=== PATIENT | male | born 1945 | race Caucasian/White ===

== ENCOUNTER 2023-05-19 08:30 | Inpatient (IN) | payer MEDICARE, BC ==
[~2023-05-19] VITALS: Ht 198.1 cm; Wt 78.5 kg
[~2023-05-19 08:30] MED LIST: LORAZEPAM0.5 MG PO; MECLIZINE HCL12.5 MG PO; SIMVASTATIN20 MG PO
[2023-05-19] MEDS: SODIUM CHLORIDE 0.9% 1000ML 1,000 ML IV ONE (09:05)
[2023-05-19 09:06] LABS: BASOPHILS # (AUTO) 0.1 (0.0-0.1); BASOPHILS % 0.3 % (0.0-1.0); EOSINOPHILS % 0.1 % (0.0-6.0); HEMATOCRIT 48.8 % (38.2-49.6); HEMOGLOBIN 16.3 g/dL (14.0-18.0); LYMPHOCYTES # (AUTO) 0.6 (1.0-3.2); LYMPHOCYTES % 4.2 % (18.0-39.1); MEAN CORPUSCULAR HEMOGLOBIN 30.8 pg (28-32); MEAN CORPUSCULAR HGB CONC 33.4 g/dL (31-35); MEAN CORPUSCULAR VOLUME 92.1 fL (81-99); MONOCYTES % 6.6 % (4.4-11.3); NEUTROPHILS # (AUTO) 13.1 (2.1-6.9); NEUTROPHILS % 88.1 % (38.7-80.0); PLATELET COUNT 307 x10e3/uL (140-360); RED CELL DISTRIBUTION WIDTH 15.3 % (11.7-14.4); WHITE BLOOD COUNT 14.87 x10e3/uL (4.8-10.8)
[2023-05-19 09:51] LABS: INR 1.12; PROTHROMBIN TIME 14.6 seconds (11.9-14.5)
[2023-05-19 09:52] LABS: PARTIAL THROMBOPLASTIN TIME 37.9 seconds (23.8-35.5)
[2023-05-19 10:01] LABS: ALBUMIN 3.2 g/dL (3.5-5.0); ALBUMIN/GLOBULIN RATIO 0.8 (0.8-2.0); ANION GAP 21.2 mmol/L (8-16); BILIRUBIN,TOTAL 4.6 mg/dL (0.2-1.2); CALCIUM 11.7 mg/dL (8.4-10.2); CREATININE, SERUM 1.71 mg/dL (0.72-1.25); TOTAL PROTEIN 7.1 g/dL (6.5-8.1)
[2023-05-19 10:05] LABS: POTASSIUM 5.2 mmol/L (3.5-5.1)
[2023-05-19] MEDS: SODIUM CHLORIDE 0.9% 1000ML 1,000 ML IV SCH (12:03)
[2023-05-19 12:48] LABS: CLARITY,URINE CLEAR (CLEAR); COLOR,URINE AMBER (YELLOW); GLUCOSE, URINE NEGATIVE (NEGATIVE); KETONES,URINE NEGATIVE (NEGATIVE); LEUKOCYTE ESTERASE ,URINE NEGATIVE (NEGATIVE); NITRITE,URINE NEGATIVE (NEGATIVE); PH,URINE 5 (5 - 7); PROTEIN,URINE DIPSTICK 2+ (NEGATIVE)
[2023-05-19 12:49] LABS: BILIRUBIN,URINE MODERATE (NEGATIVE); URINE UROBILINOGEN 2 mg/dL (0.2 - 1)
[2023-05-19 13:02] LABS: BACTERIA,URINE MANY /HPF; EPITHELIAL CELLS,URINE RARE /LPF; RBC,URINE 0-5 /HPF (0-5); WBC,URINE (MAN) 0-5 /HPF (0-5)
[2023-05-19] MEDS ORDERED: ONDANSETRON2 MG/1 ML IV (15:34)
[2023-05-19 15:51] VITALS: PULSE 90; RESP 19; TEMP 97.8; O2SAT 97
[2023-05-19 16:00] VITALS: BP 123/55; PULSE 90; RESP 19; TEMP 97.8; O2SAT 97
[2023-05-19 20:00] VITALS: BP 120/63; PULSE 84; RESP 18; TEMP 97.5; O2SAT 94
[2023-05-20] VITALS (8 sets, daily range): BP systolic 110–120; BP diastolic 59–73; PULSE 74–85; RESP 18–20; TEMP 97.1–97.7; O2SAT 95–97
[2023-05-20] MEDS ORDERED: LORAZEPAM 0.5 MG TAB PO PRN (04:00)
[2023-05-20 05:43] LABS: BASOPHILS % 0.3 % (0.0-1.0); EOSINOPHILS % 0.1 % (0.0-6.0); HEMATOCRIT 42.3 % (38.2-49.6); LYMPHOCYTES # (AUTO) 0.9 (1.0-3.2); LYMPHOCYTES % 7.4 % (18.0-39.1); MEAN CORPUSCULAR HEMOGLOBIN 30.3 pg (28-32); MEAN CORPUSCULAR HGB CONC 33.1 g/dL (31-35); MEAN CORPUSCULAR VOLUME 91.6 fL (81-99); MONOCYTES # (AUTO) 0.9 (0.2-0.8); MONOCYTES % 7.7 % (4.4-11.3); NEUTROPHILS # (AUTO) 9.9 (2.1-6.9); NEUTROPHILS % 84.1 % (38.7-80.0); PLATELET COUNT 240 x10e3/uL (140-360); RED BLOOD COUNT 4.62 x10e6/uL (4.3-5.7); RED CELL DISTRIBUTION WIDTH 15.5 % (11.7-14.4); WHITE BLOOD COUNT 11.73 x10e3/uL (4.8-10.8)
[2023-05-20 06:09] LABS: ALBUMIN 2.7 g/dL (3.5-5.0); ALBUMIN/GLOBULIN RATIO 0.9 (0.8-2.0); ANION GAP 17.2 mmol/L (8-16); CALCIUM 10.6 mg/dL (8.4-10.2); CREATININE, SERUM 1.37 mg/dL (0.72-1.25); TOTAL PROTEIN 5.6 g/dL (6.5-8.1)
[2023-05-20 06:10] LABS: POTASSIUM 5.2 mmol/L (3.5-5.1)
[2023-05-20] MEDS ORDERED: FENTANYL CITRATE/PF 100MCG/2 ML INJ ONE (10:44)
[2023-05-20] MEDS ORDERED: MIDAZOLAM HCL 2 MG/2 ML VIAL ONE (10:44)
[2023-05-20] MEDS ORDERED: SODIUM CHLORIDE 0.9% 250ML 250 ML ONE (10:45)
[2023-05-20] MEDS: Morphine 2mg Syringe 2 MG/ML SYR IV PRN (16:18)
[2023-05-21] VITALS: BP 123/63; PULSE 80; RESP 18; TEMP 97.7; O2SAT 96
[2023-05-21 04:00] VITALS: BP 133/65; PULSE 81; RESP 18; TEMP 98; O2SAT 95
[2023-05-21 05:58] LABS: BASOPHILS % 0.2 % (0.0-1.0); EOSINOPHILS % 0.1 % (0.0-6.0); HEMATOCRIT 41.9 % (38.2-49.6); HEMOGLOBIN 14.2 g/dL (14.0-18.0); LYMPHOCYTES # (AUTO) 0.7 (1.0-3.2); LYMPHOCYTES % 6.3 % (18.0-39.1); MEAN CORPUSCULAR HEMOGLOBIN 30.6 pg (28-32); MEAN CORPUSCULAR HGB CONC 33.9 g/dL (31-35); MEAN CORPUSCULAR VOLUME 90.3 fL (81-99); MONOCYTES # (AUTO) 0.8 (0.2-0.8); MONOCYTES % 7.5 % (4.4-11.3); NEUTROPHILS # (AUTO) 9.1 (2.1-6.9); NEUTROPHILS % 85.1 % (38.7-80.0); PLATELET COUNT 225 x10e3/uL (140-360); RED BLOOD COUNT 4.64 x10e6/uL (4.3-5.7); RED CELL DISTRIBUTION WIDTH 15.8 % (11.7-14.4); WHITE BLOOD COUNT 10.65 x10e3/uL (4.8-10.8)
[2023-05-21 06:46] LABS: ALBUMIN 2.6 g/dL (3.5-5.0); ALBUMIN/GLOBULIN RATIO 0.8 (0.8-2.0); BILIRUBIN,TOTAL 4.9 mg/dL (0.2-1.2); CALCIUM 10.2 mg/dL (8.4-10.2); CREATININE, SERUM 1.22 mg/dL (0.72-1.25); TOTAL PROTEIN 5.8 g/dL (6.5-8.1)
[2023-05-21 08:00] VITALS: BP 133/65; PULSE 81; RESP 18; TEMP 98; O2SAT 95
[2023-05-21 08:35] LABS: ALPHA FETO-PROTEIN 3.1 ng/mL (0.0-8.4)
[2023-05-21] MEDS: ONDANSETRON HCL INJ 2MG/ML 2ML 2 MG/ML VIAL IV PRN (11:04)
[2023-05-21 12:00] VITALS: BP 112/48; PULSE 82; RESP 19; TEMP 98.7; O2SAT 95
[2023-05-21 16:00] VITALS: BP 121/59; PULSE 80; RESP 21; TEMP 97.9; O2SAT 96
[2023-05-21 20:00] VITALS: BP 119/57; PULSE 85; RESP 17; TEMP 98.2; O2SAT 96
[2023-05-22] VITALS (7 sets, daily range): BP systolic 109–123; BP diastolic 55–69; PULSE 75–88; RESP 16–21; TEMP 97.3–98; O2SAT 95–99
[2023-05-22 06:55] LABS: BASOPHILS % 0.3 % (0.0-1.0); EOSINOPHILS % 0.2 % (0.0-6.0); HEMATOCRIT 42.4 % (38.2-49.6); HEMOGLOBIN 13.7 g/dL (14.0-18.0); LYMPHOCYTES # (AUTO) 0.6 (1.0-3.2); LYMPHOCYTES % 6.5 % (18.0-39.1); MEAN CORPUSCULAR HEMOGLOBIN 30.3 pg (28-32); MEAN CORPUSCULAR HGB CONC 32.3 g/dL (31-35); MEAN CORPUSCULAR VOLUME 93.8 fL (81-99); MONOCYTES # (AUTO) 0.7 (0.2-0.8); MONOCYTES % 7.5 % (4.4-11.3); NEUTROPHILS # (AUTO) 8.4 (2.1-6.9); NEUTROPHILS % 84.8 % (38.7-80.0); PLATELET COUNT 184 x10e3/uL (140-360); RED BLOOD COUNT 4.52 x10e6/uL (4.3-5.7); RED CELL DISTRIBUTION WIDTH 16.1 % (11.7-14.4); WHITE BLOOD COUNT 9.92 x10e3/uL (4.8-10.8)
[2023-05-22 07:19] LABS: ANION GAP 14.8 mmol/L (8-16); CALCIUM 9.9 mg/dL (8.4-10.2); CREATININE, SERUM 0.99 mg/dL (0.72-1.25); POTASSIUM 4.8 mmol/L (3.5-5.1)
[2023-05-23] VITALS (8 sets, daily range): BP systolic 111–148; BP diastolic 62–73; PULSE 82–91; RESP 16–18; TEMP 97.3–98.1; O2SAT 95–100
[2023-05-23 05:59] LABS: BASOPHILS % 0.3 % (0.0-1.0); EOSINOPHILS % 0.3 % (0.0-6.0); HEMATOCRIT 46.1 % (38.2-49.6); LYMPHOCYTES # (AUTO) 0.9 (1.0-3.2); LYMPHOCYTES % 9.5 % (18.0-39.1); MEAN CORPUSCULAR HEMOGLOBIN 30.1 pg (28-32); MEAN CORPUSCULAR HGB CONC 32.5 g/dL (31-35); MEAN CORPUSCULAR VOLUME 92.6 fL (81-99); MONOCYTES # (AUTO) 0.7 (0.2-0.8); MONOCYTES % 7.2 % (4.4-11.3); NEUTROPHILS # (AUTO) 7.7 (2.1-6.9); NEUTROPHILS % 81.8 % (38.7-80.0); PLATELET COUNT 211 x10e3/uL (140-360); RED BLOOD COUNT 4.98 x10e6/uL (4.3-5.7); RED CELL DISTRIBUTION WIDTH 16.6 % (11.7-14.4); WHITE BLOOD COUNT 9.37 x10e3/uL (4.8-10.8)
[2023-05-23 06:31] LABS: ALBUMIN 2.6 g/dL (3.5-5.0); ALBUMIN/GLOBULIN RATIO 0.8 (0.8-2.0); ANION GAP 16.4 mmol/L (8-16); BILIRUBIN,TOTAL 5.5 mg/dL (0.2-1.2); CALCIUM 10.2 mg/dL (8.4-10.2); CREATININE, SERUM 0.95 mg/dL (0.72-1.25); POTASSIUM 4.4 mmol/L (3.5-5.1); TOTAL PROTEIN 5.8 g/dL (6.5-8.1)
[2023-05-23] MEDS ORDERED: MIDAZOLAM HCL 2 MG/2 ML VIAL ONE (10:26)
[2023-05-23] MEDS ORDERED: FENTANYL CITRATE/PF 100MCG/2 ML INJ ONE (10:26)
[2023-05-23] MEDS ORDERED: SODIUM CHLORIDE 0.9% 250ML 250 ML ONE (10:27)
[2023-05-23] MEDS ORDERED: GLUCAGON FOR INJ 1 MG VIAL ONE (10:33)
[2023-05-23] MEDS ORDERED: DIATRIZOATE MEGL/DIATRIZOA SOD 30 ML BTL PO ONE (10:38)
[2023-05-23] MEDS ORDERED: SODIUM CHLORIDE 0.9% 500ML 500 ML ONE (10:38)
[2023-05-23] MEDS ORDERED: LIDOCAINE HCL 1% LOCAL INJ 20 ML VIAL ONE (10:38)
[2023-05-23] MEDS ORDERED: DIPHENHYDRAMINE HCL 25 MG CAP ONE (12:59)
[2023-05-24] VITALS (7 sets, daily range): BP systolic 111–142; BP diastolic 69–99; PULSE 80–97; RESP 18–20; TEMP 97.4–98.2; O2SAT 96–99
[2023-05-24] MEDS ORDERED: DIATRIZOATE MEGL/DIATRIZOA SOD 30 ML BTL PO ONE (15:02)
[2023-05-25] VITALS (7 sets, daily range): BP systolic 124–142; BP diastolic 68–82; PULSE 68–96; RESP 16–22; TEMP 97.4–98; O2SAT 95–99
[2023-05-25] MEDS: METOCLOPRAMIDE HCL 10 MG/2ML VIAL IV SCH (00:39)
[2023-05-25 05:23] LABS: BASOPHILS % 0.3 % (0.0-1.0); HEMATOCRIT 41.7 % (38.2-49.6); HEMOGLOBIN 13.6 g/dL (14.0-18.0); LYMPHOCYTES # (AUTO) 0.6 (1.0-3.2); LYMPHOCYTES % 5.2 % (18.0-39.1); MEAN CORPUSCULAR HEMOGLOBIN 30.2 pg (28-32); MEAN CORPUSCULAR HGB CONC 32.6 g/dL (31-35); MEAN CORPUSCULAR VOLUME 92.5 fL (81-99); MONOCYTES # (AUTO) 0.8 (0.2-0.8); MONOCYTES % 6.8 % (4.4-11.3); NEUTROPHILS # (AUTO) 10.3 (2.1-6.9); PLATELET COUNT 205 x10e3/uL (140-360); RED BLOOD COUNT 4.51 x10e6/uL (4.3-5.7); RED CELL DISTRIBUTION WIDTH 17.8 % (11.7-14.4); WHITE BLOOD COUNT 11.87 x10e3/uL (4.8-10.8)
[2023-05-25 05:46] LABS: ALBUMIN 2.3 g/dL (3.5-5.0); ALBUMIN/GLOBULIN RATIO 0.8 (0.8-2.0); ANION GAP 15.9 mmol/L (8-16); BILIRUBIN,TOTAL 5.7 mg/dL (0.2-1.2); CALCIUM 9.9 mg/dL (8.4-10.2); CREATININE, SERUM 1.29 mg/dL (0.72-1.25); MAGNESIUM 2.1 MG/DL (1.3-2.1); POTASSIUM 4.9 mmol/L (3.5-5.1); TOTAL PROTEIN 5.1 g/dL (6.5-8.1)
[2023-05-25] MEDS ORDERED: MECLIZINE HCL 12.5 MG TAB PO PRN (14:15)
[2023-05-26] VITALS: BP 141/79; PULSE 96; RESP 18; TEMP 98; O2SAT 96
[2023-05-26 04:00] VITALS: BP 130/73; PULSE 91; RESP 18; TEMP 97.7; O2SAT 94
[2023-05-26 05:35] LABS: BASOPHILS % 0.2 % (0.0-1.0); EOSINOPHILS % 0.1 % (0.0-6.0); HEMATOCRIT 47.2 % (38.2-49.6); HEMOGLOBIN 15.3 g/dL (14.0-18.0); LYMPHOCYTES # (AUTO) 0.8 (1.0-3.2); LYMPHOCYTES % 6.9 % (18.0-39.1); MEAN CORPUSCULAR HEMOGLOBIN 30.4 pg (28-32); MEAN CORPUSCULAR HGB CONC 32.4 g/dL (31-35); MEAN CORPUSCULAR VOLUME 93.7 fL (81-99); MONOCYTES # (AUTO) 0.8 (0.2-0.8); NEUTROPHILS # (AUTO) 10.1 (2.1-6.9); NEUTROPHILS % 84.8 % (38.7-80.0); PLATELET COUNT 218 x10e3/uL (140-360); RED BLOOD COUNT 5.04 x10e6/uL (4.3-5.7); RED CELL DISTRIBUTION WIDTH 18.8 % (11.7-14.4); WHITE BLOOD COUNT 11.95 x10e3/uL (4.8-10.8)
[2023-05-26 06:09] LABS: ALBUMIN 2.4 g/dL (3.5-5.0); ALBUMIN/GLOBULIN RATIO 0.8 (0.8-2.0); ANION GAP 16.9 mmol/L (8-16); BILIRUBIN,TOTAL 7.1 mg/dL (0.2-1.2); CALCIUM 10.4 mg/dL (8.4-10.2); CREATININE, SERUM 1.23 mg/dL (0.72-1.25); POTASSIUM 4.9 mmol/L (3.5-5.1); TOTAL PROTEIN 5.5 g/dL (6.5-8.1)
[2023-05-26 08:16] VITALS: BP 131/88; PULSE 86; RESP 21; TEMP 97.8; O2SAT 96
[2023-05-26 12:20] VITALS: BP 134/72; PULSE 99; RESP 22; TEMP 97.8; O2SAT 96
== END 2023-05-26 13:17 | DRG 843 ==
LOC: ER 08:37 → ERHOLD 11:31 → MED/SURG 15:02
PROVIDERS: ADMIT Internal Medicine; ATTEND Internal Medicine
PROC: 0DH63UZ Insertion of Feeding Device into Stomach, Percutaneous Approach (ICD-10-PCS; principal; 2023-05-19)
PROC: 0FB13ZX Excision of Right Lobe Liver, Percutaneous Approach, Diagnostic (ICD-10-PCS; 2023-05-19)
DX: C7B.8 Other secondary neuroendocrine tumors (principal); E43 Unspecified severe protein-calorie malnutrition; N17.9 Acute kidney failure, unspecified; K94.23 Gastrostomy malfunction; R16.0 Hepatomegaly, not elsewhere classified; E86.0 Dehydration; R63.4 Abnormal weight loss; E87.5 Hyperkalemia; D72.829 Elevated white blood cell count, unspecified; Z68.20 Body mass index [BMI] 20.0-20.9, adult; Y83.3 Surgical operation with formation of external stoma as the cause of abnormal reaction of the patient, or of later complication, without mention of misadventure at the time of the procedure; Y92.230 Patient room in hospital as the place of occurrence of the external cause; F41.9 Anxiety disorder, unspecified; D64.9 Anemia, unspecified; E78.5 Hyperlipidemia, unspecified; Z20.822 Contact with and (suspected) exposure to COVID-19; R53.1 Weakness
CPT/HCPCS: 36415; 47000; 49440; 49465; 71045; 74018; 74176; 74470; 76942; 80048; 80053; 81001; 82105; 82140; 82378; 83690; 83735; 85025; 85610; 85730; 88305; 88307; 88342; 93005; 99152; 99153; 99252; 99284; C1769; C1894; J0690; J1610; J2001; J2250; J2270; J2405; J2765; J7030; J7040; J7050; Q9963; U0002